=== PATIENT | male | born 2000 | race Two or more races ===

== ENCOUNTER → 2020-06-30 16:33 | Outpatient (CLI) | payer OTHER | END | disposition home or self-care (01) | LOC: PPH VACUNA 16:33 | DX: Z23 Encounter for immunization (principal) ==

== ENCOUNTER → 2021-02-28 | Emergency (ER) | payer OTHER ==
[~2021-02-28] VITALS: Ht 180.3 cm; Wt 59.9 kg
== END | disposition home or self-care (01) ==
LOC: EMR PED 09:07
DX: J06.9 Acute upper respiratory infection, unspecified (principal); Z11.52 Encounter for screening for COVID-19